=== PATIENT | female | born 1995 | race Caucasian/White ===

== ENCOUNTER → 2019-01-11 09:10 | Outpatient (CLI) | payer MEDICAID, SELFPAY ==
--- NOTE | 2019-01-11 09:12 | DI.US.S_ITS ---
PROCEDURE: US PELVIC COMPLETE INDICATIONS: IUD check TECHNIQUE: Real-time scanning was performed of the pelvic organs, with image documentation. Additional endovaginal scanning was necessary due to incomplete visualization of the adnexal and endometrial structures by transabdominal scanning. COMPARISON: None. FINDINGS: Transabdominal scanning: Limited scanning through the kidneys shows no hydronephrosis. No pathologic free abdominal or pelvic fluid. Endovaginal scanning: Uterus: Uterus is normal in size at 8.6 x 5.0 x 6.8 cm. The endometrium measures 19.7 mm in combined thickness. Intrauterine device is appropriately positioned within the uterus. Ovaries: Right adnexa measures 3.9 x 2.2 x 3.6 cm. Left adnexa measures 3.1 x 1.9 x 2.7 cm the adnexa are sonographically normal. IMPRESSION: 1. Intrauterine device properly positioned. 2. Slight endometrial thickening. Recommend gynecology consultation and repeat ultrasound in 4-6 weeks to ensure resolution. 3. Adnexa are sonographically normal. Dictated by: Mellisa Ruggiero MD, PhD on 01/11/2019 at 10:00 Approved by: Mellisa Ruggiero MD, PhD on 01/11/2019 at 10:02
== END ==
PROVIDERS: Visit Provider Physician Assistant
DX: Z30.431 Encounter for routine checking of intrauterine contraceptive device (principal)
CPT/HCPCS: 76856